=== PATIENT | female | born 1985 | race African-American/Black ===

== ENCOUNTER 2019-03-26 15:36 | Emergency (ER) | payer OTHER ==
[2019-03-26 15:51] VITALS: BP 130/85; PULSE 70; TEMP 98.2; BMI 35.6
--- NOTE | 2019-03-26 16:33 | PDOC ---
History of Present Illness - General Chief Complaint: Injury Stated Complaint: RT FOOT INJURY Time Seen by Provider: 03/26/19 15:51 - History of Present Illness Initial Comments: 03/26/19 16:31 33-year-old female without comorbidities presents for evaluation of right foot injury. She describes a plantarflexion type injury while walking earlier today. Past History - Past Medical History Allergies/Adverse Reactions: Allergies Allergy/AdvReac Type Severity Reaction Status Date / Time No Known Allergies Allergy Verified 03/26/19 15:51 Home Medications: Ambulatory Orders NK [No Known Home Medication] 09/30/15 Asthma: No Cancer: No Cardiac Disorders: No COPD: No Diabetes: No HTN: No Seizures: No Thyroid Disease: No - Reproductive History Cervical CA: No Dysfunctional Uterine Bleeding: No Ectopic : No Endometrial CA: No Polycystic Ovaries: No Spontaneous : 1 - Psycho Social/Smoking Cessation Hx Smoking Status: Yes Smoking History: Never smoked Have you smoked in the past 12 months: Yes Number of Cigarettes Smoked Daily: 0 If you are a former smoker, when did you quit?: quit after knowledge Hx Alcohol Use: Yes (OCCASIONALLY) Drug/Substance Use Hx: No Substance Use Type: None Hx Substance Use Treatment: No Review of Systems - Review of Systems Musculoskeletal: Yes: Joint Pain *Physical Exam - Vital Signs Last Vital Signs Temp Pulse Resp BP Pulse Ox 98.2 F 70 18 130/85 100 03/26/19 15:47 03/26/19 15:47 03/26/19 15:47 03/26/19 15:47 03/26/19 15:47 - Physical Exam 03/26/19 16:31 Right foot skin color and temperature normal. Mildly decreased right ankle range of motion. No tenderness about the knee proximal fibula or along its distal course no tenderness about the medial lateral malleolus ATFL navicular or base of the fifth metatarsal. Mild tenderness about the Lisfranc joint. No gross sensorimotor deficits instability neurovascular intact ED Treatment Course - RADIOLOGY Radiology Studies Ordered: Category Date Time Status ANKLE & FOOT-RIGHT* [RAD] Stat Radiology 03/26/19 16:04 Taken Medical Decision Making - Medical Decision Making 03/26/19 16:32 X-rays of the right foot showed no evidence of fracture trauma or destructive process weight-bear as tolerated with Meyer wrap and crutches follow-up with orthopedic surgery Discharge - Discharge Information Problems reviewed: Yes Clinical Impression/Diagnosis: Right foot sprain Condition: Stable Disposition: HOME - Admission No - Follow up/Referral Referrals: Dennis Hill DO [Staff Physician] - - Patient Discharge Instructions Additional Instructions: Weight-bear as tolerated with Meyer wrap and crutches and follow-up with orthopedic surgery in 2 to 3 days for further evaluation and treatment options. Return to the emergency room for worsening symptoms. Tylenol and Motrin as directed for pain. Elevation and ice as we discussed. - Post Discharge Activity Work/Back to School Note: Back to Work
== END 2019-03-26 16:51 | disposition home or self-care (01) ==
LOC: JERFT 15:36
PROC: 2W3RX1Z Immobilization of Left Lower Leg using Splint (ICD-10-PCS; principal; 2019-03-26)
DX: S93.692A Other sprain of left foot, initial encounter (principal); X50.9XXA Other and unspecified overexertion or strenuous movements or postures, initial encounter; Y93.01 Activity, walking, marching and hiking; Y92.89 Other specified places as the place of occurrence of the external cause; Y99.8 Other external cause status
CPT/HCPCS: 73610-TC-RT-FY; 73630-TC-RT-FY; 99282-25

== ENCOUNTER 2020-10-07 12:56 | Emergency (ER) | payer OTHER ==
[2020-10-07 13:34] VITALS: BP 134/89; PULSE 88; TEMP 99.8; BMI 69.0
[2020-10-07] MEDS ORDERED: DEXAMETHASONE LIQUID 0.5 MG/5 ML PO ONE (13:58)
[2020-10-07] MEDS ORDERED: KETOROLAC TROMETHAMINE 15 MG/ML VIAL IVPUSH ONE (13:59)
[2020-10-07] MEDS ORDERED: DEXAMETHASONE SOD PHOSPHATE 10 MG/1 ML VIAL ONE (14:13)
[2020-10-07] MEDS ORDERED: KETOROLAC TROMETHAMINE 15 MG/ML VIAL ONE (14:13)
[2020-10-07 14:45] LABS: BASO % 0.3 % (0-2.0); EOS % 0.6 % (0-4.5); HEMATOCRIT 41.4 % (32.4-45.2); HEMOGLOBIN 13.6 GM/dL (10.7-15.3); MCH 28.6 pg (25.7-33.7); MCHC 32.8 g/dl (32.0-36.0); MEAN CELL VOLUME 87.1 fl (80-96); MEAN PLT VOLUME 9.3 fl (7.5-11.1); MONO % 9.2 % (3.8-10.2); NEUT % 75.9 % (42.8-82.8); PLATELET COUNT 220 10^3/uL (134-434); RBC 4.75 M/mm3 (3.60-5.2); RDW 14.2 % (11.6-15.6); WHITE BLOOD COUNT 13.4 K/mm3 (4.0-10.0)
[2020-10-07 15:10] LABS: CALCIUM 8.3 mg/dL (8.5-10.1)
[2020-10-07 15:11] LABS: ALBUMIN 3.3 g/dl (3.4-5.0)
[2020-10-07 15:14] LABS: CREATININE 0.7 mg/dL (0.55-1.3)
[2020-10-07 15:16] LABS: BILIRUBIN,TOTAL 0.3 mg/dL (0.2-1)
== END 2020-10-07 17:27 | disposition home or self-care (01) ==
LOC: JERFT 12:56 → JER 12:56 → JERFT 17:27
PROC: 3E0233Z Introduction of Anti-inflammatory into Muscle, Percutaneous Approach (ICD-10-PCS; principal; 2020-10-07)
DX: R07.0 Pain in throat (principal); R59.9 Enlarged lymph nodes, unspecified; J03.90 Acute tonsillitis, unspecified
CPT/HCPCS: 36415; 70491-TC; 80053; 84703; 85025; 87880; 99284-25; Q9967

== ENCOUNTER 2020-11-27 17:02 | Emergency (ER) | payer OTHER ==
[2020-11-27 17:34] VITALS: BP 136/86; PULSE 90; TEMP 98.1; BMI 34.3
[2020-11-27] MEDS ORDERED: AMOX TR/POT CLAV 875MG/125MG TABLETS (FP) PO ONE (19:16)
[2020-11-27] MEDS ORDERED: DEXAMETHASONE LIQUID 0.5 MG/5 ML PO ONE (19:16)
[2020-11-27] MEDS ORDERED: DEXAMETHASONE SOD PHOSPHATE 10 MG/1 ML VIAL ONE (19:18)
[2020-11-27] MEDS ORDERED: AMOX TR/POT CLAV 875MG/125MG TABLETS (FP) ONE (19:19)
== END 2020-11-27 21:49 | disposition home or self-care (01) ==
LOC: JER 17:02
DX: J02.0 Streptococcal pharyngitis (principal); Z11.52 Encounter for screening for COVID-19
CPT/HCPCS: 87880; 99283-25; C9803; U0003; U0005

== ENCOUNTER 2021-11-11 15:57 | Emergency (ER) | payer OTHER ==
[2021-11-11 16:09] VITALS: BP 119/83; PULSE 88; RESP 20; TEMP 98.2; BMI 36.0
[2021-11-11] MEDS ORDERED: ACETAMINOPHEN 1000 MG/100 ML BAG IVPB ONE (18:13)
[2021-11-11] MEDS ORDERED: ACETAMINOPHEN INJECTION 100 ML IVPB ONE (18:21)
[2021-11-11 18:59] LABS: BASO % 1.7 % (0-2.0); EOS % 2.3 % (0-4.5); HEMATOCRIT 43.5 % (32.4-45.2); HEMOGLOBIN 13.9 GM/dL (10.7-15.3); LYMPH % 41.3 % (8-40); MCH 27.2 pg (25.7-33.7); MEAN PLT VOLUME 9.5 fl (7.5-11.1); MONO % 7.3 % (3.8-10.2); NEUT % 47.4 % (42.8-82.8); PLATELET COUNT 255 10^3/uL (134-434); RBC 5.12 M/mm3 (3.60-5.2); RDW 14.2 % (11.6-15.6)
[2021-11-11 19:36] LABS: CALCIUM 9.5 mg/dL (8.5-10.1)
[2021-11-11 19:37] LABS: ALBUMIN 3.6 g/dl (3.4-5.0); BLOOD UREA NITROGEN 17.2 mg/dL (7-18)
[2021-11-11 19:40] LABS: CREATININE 0.6 mg/dL (0.55-1.3)
[2021-11-11 19:42] LABS: BILIRUBIN,TOTAL 0.4 mg/dL (0.2-1); TOT PROT 7.4 g/dl (6.4-8.2)
== END 2021-11-11 20:38 | disposition home or self-care (01) ==
LOC: JER 15:57
PROC: 3E033NZ Introduction of Analgesics, Hypnotics, Sedatives into Peripheral Vein, Percutaneous Approach (ICD-10-PCS; principal; 2021-11-11)
DX: R60.9 Edema, unspecified (principal)
CPT/HCPCS: 36415; 80053; 84484; 85025; 93005; 93010; 93970-TC; 99284-25

== ENCOUNTER 2023-12-17 16:21 | Inpatient (IN) | payer OTHER ==
[2023-12-17] MEDS ORDERED: ONDANSETRON 4 MG/2 ML VIAL ONE (16:50)
[2023-12-17] MEDS ORDERED: FAMOTIDINE 20 MG/50 ML IVPB 20 MG/50 ML MG IVPB ONE (16:50)
[2023-12-17] MEDS: FAMOTIDINE 20 MG/50 ML IVPB 20 MG/50 ML MG IVPB ONE (17:16)
[2023-12-17] MEDS: SODIUM CHLORIDE 1,000 ML IV STA (17:16)
[2023-12-17] MEDS: ONDANSETRON 4 MG/2 ML VIAL IVPUSH ONE (17:16)
[2023-12-17 17:26] LABS: BASO % 0.4 % (0-2.0); EOS % 1.2 % (0-4.5); HEMATOCRIT 40.1 % (32.4-45.2); HEMOGLOBIN 12.8 GM/dL (10.7-15.3); LYMPH % 6.7 % (8-40); MCHC 31.9 g/dl (32.0-36.0); MEAN CELL VOLUME 78.5 fl (80-96); MEAN PLT VOLUME 9.4 fl (7.5-11.1); MONO % 7.2 % (3.8-10.2); NEUT % 84.5 % (42.8-82.8); PLATELET COUNT 325 10^3/uL (134-434); RDW 14.6 % (11.6-15.6); WHITE BLOOD COUNT 18.9 K/mm3 (4.0-10.0)
[2023-12-17 17:37] LABS: POTASSIUM 3.2 mmol/L (3.5-5.1)
[2023-12-17 17:39] LABS: CALCIUM 9.6 mg/dL (8.5-10.1)
[2023-12-17 17:41] LABS: ALBUMIN 3.2 g/dl (3.4-5.0); BLOOD UREA NITROGEN 4.3 mg/dL (7-18)
[2023-12-17 17:42] LABS: CREATININE 0.7 mg/dL (0.55-1.3)
[2023-12-17] MEDS ORDERED: POTASSIUM CHLORIDE ORAL LIQUID 20 MEQ/15 ML ONE ×2 (17:43→18:47)
[2023-12-17] MEDS ORDERED: morphine SULFATE 4 MG/ML VIAL ONE ×2 (17:43→21:10)
[2023-12-17 17:44] LABS: BILIRUBIN,TOTAL 0.3 mg/dL (0.2-1); TOT PROT 7.8 g/dl (6.4-8.2)
[2023-12-17 18:30] LABS: LACTIC ACID 2.3 mmol/L (0.4-2.0)
[2023-12-17 18:34] LABS: HIV INTERPRETATION NEGATIVE (NEGATIVE)
[2023-12-17] MEDS: morphine CARPU-JECT 4 MG/1 ML DISP.SYRIN IVPUSH ONE (18:45)
[2023-12-17] MEDS ORDERED: ACETAMINOPHEN INJECTION 100 ML ONE (18:47)
[2023-12-17] MEDS: POTASSIUM CHLORIDE ORAL LIQUID 20 MEQ/15 ML PO ONE (18:47)
[2023-12-17] MEDS: ACETAMINOPHEN 1000 MG/100 ML BAG IVPB ONE (18:54)
[2023-12-17] MEDS: SODIUM CHLORIDE 0.9% 500 ML INFUS.BAG IV ONE (18:55)
[2023-12-17] MEDS ORDERED: PIPERACILLIN/TAZOB 4.5 GM 4.5 GM/100 ML BAG IVPB ONE (21:10)
[2023-12-17] MEDS: morphine SULFATE 4 MG/ML VIAL IVPUSH ONE (21:29)
[2023-12-17] MEDS: PIPERACILLIN/TAZOB 4.5 GM 4.5 GM in DEXTROSE 5%-WATER 100 ML IVPB ONE (21:29)
[2023-12-17] MEDS: SODIUM CHLORIDE 1,000 ML IV SCH (22:01)
[2023-12-18] MEDS: KETOROLAC TROMETHAMINE 30 MG/1 ML VIAL IVPB ONE (00:20)
[2023-12-18 01:43] VITALS: BMI 35.7
[2023-12-18 02:15] LABS: EPI CELLS 10 /uL (0-25.1); HYALINE CASTS 0 /uL (0-3.1); URINE APPEARANCE CLEAR; URINE BACTERIA 22 /uL (0-1359); URINE BILIRUBIN NEGATIVE (NEGATIVE); URINE COLOR YELLOW; URINE GLUCOSE (UA) NEGATIVE (NEGATIVE); URINE KETONE NEGATIVE (NEGATIVE); URINE LEUK ESTERASE NEGATIVE (NEGATIVE); URINE NITRITE NEGATIVE (NEGATIVE); URINE PROTEIN NEGATIVE (NEGATIVE); URINE RBC 80 /uL (0-23.9); URINE WBC 27 /uL (0-25.8)
[2023-12-18] MEDS: PIPERACILLIN/TAZOB 4.5 GM 4.5 GM in DEXTROSE 5%-WATER 100 ML IVPB SCH (03:04)
[2023-12-18] MEDS: morphine SULFATE 4 MG/ML VIAL IVPUSH PRN (03:05)
[2023-12-18] MEDS: ACETAMINOPHEN 1000 MG/100 ML BAG IVPB PRN (04:31)
[2023-12-18 10:37] LABS: BASO % 0.4 % (0-2.0); EOS % 2.3 % (0-4.5); HEMATOCRIT 32.2 % (32.4-45.2); HEMOGLOBIN 10.2 GM/dL (10.7-15.3); LYMPH % 8.3 % (8-40); MCHC 31.8 g/dl (32.0-36.0); MEAN CELL VOLUME 78.7 fl (80-96); MEAN PLT VOLUME 9.9 fl (7.5-11.1); MONO % 11.8 % (3.8-10.2); NEUT % 77.2 % (42.8-82.8); PLATELET COUNT 280 10^3/uL (134-434); RBC 4.09 M/mm3 (3.60-5.2); RDW 14.3 % (11.6-15.6); WHITE BLOOD COUNT 17.9 K/mm3 (4.0-10.0)
[2023-12-18] MEDS: KETOROLAC TROMETHAMINE 30 MG/1 ML VIAL IVPUSH PRN (11:09)
[2023-12-18 14:16] LABS: ALBUMIN 2.4 g/dl (3.4-5.0); BILIRUBIN,TOTAL 0.3 mg/dL (0.2-1); BLOOD UREA NITROGEN 6.3 mg/dL (7-18); CREATININE 0.6 mg/dL (0.55-1.3); POTASSIUM 3.5 mmol/L (3.5-5.1); TOT PROT 5.7 g/dl (6.4-8.2)
[2023-12-18] MEDS: LORATADINE 10 MG TABLET PO ONE (22:16)
[2023-12-19 03:21] LABS: URINE BARBITURATES NEGATIVE (NEGATIVE)
[2023-12-19 03:22] LABS: METHADONE, UR NEGATIVE (NEGATIVE); PHENCYCLIDINE,URINE NEGATIVE (NEGATIVE); URINE AMPHETAMINES NEGATIVE (NEGATIVE); URINE BENZODIAZEPINES NEGATIVE (NEGATIVE)
[2023-12-19] MEDS: PIPERACILLIN/TAZOB 4.5 GM 4.5 GM in DEXTROSE 5%-WATER 100 ML IVPB ONE ×2 (03:35→13:45)
[2023-12-19 03:44] LABS: COCAINE, UR POSITIVE (NEGATIVE); OPIATES, URI POSITIVE (NEGATIVE)
[2023-12-19 09:44] LABS: HEMATOCRIT 32.8 % (32.4-45.2); HEMOGLOBIN 10.5 GM/dL (10.7-15.3); MCH 25.4 pg (25.7-33.7); MCHC 31.9 g/dl (32.0-36.0); MEAN CELL VOLUME 79.6 fl (80-96); MEAN PLT VOLUME 9.7 fl (7.5-11.1); PLATELET COUNT 292 10^3/uL (134-434); RBC 4.12 M/mm3 (3.60-5.2); RDW 14.6 % (11.6-15.6); WHITE BLOOD COUNT 9.4 K/mm3 (4.0-10.0)
[2023-12-19 10:04] LABS: POTASSIUM 3.7 mmol/L (3.5-5.1)
[2023-12-19 10:07] LABS: ALBUMIN 2.3 g/dl (3.4-5.0); BLOOD UREA NITROGEN 7.3 mg/dL (7-18)
[2023-12-19 10:09] LABS: CALCIUM 8.4 mg/dL (8.5-10.1)
[2023-12-19 10:11] LABS: CREATININE 0.5 mg/dL (0.55-1.3)
[2023-12-19 10:15] LABS: BILIRUBIN,TOTAL 0.2 mg/dL (0.2-1)
[2023-12-19 10:20] LABS: TOT PROT 5.6 g/dl (6.4-8.2)
[2023-12-19] MEDS: PIPERACILLIN/TAZOB 4.5 GM 4.5 GM in DEXTROSE 5%-WATER 100 ML IVPB SCH ×2 (18:38→21:13)
[2023-12-19] MEDS: LORATADINE 10 MG TABLET PO ONE (22:18)
[2023-12-20 08:57] LABS: BASO % 0.9 % (0-2.0); EOS % 4.4 % (0-4.5); HEMATOCRIT 32.1 % (32.4-45.2); LYMPH % 32.1 % (8-40); MCH 25.1 pg (25.7-33.7); MEAN CELL VOLUME 80.8 fl (80-96); MEAN PLT VOLUME 9.4 fl (7.5-11.1); MONO % 7.7 % (3.8-10.2); NEUT % 54.9 % (42.8-82.8); PLATELET COUNT 313 10^3/uL (134-434); RBC 3.97 M/mm3 (3.60-5.2); RDW 14.5 % (11.6-15.6); WHITE BLOOD COUNT 7.8 K/mm3 (4.0-10.0)
[2023-12-20 09:21] LABS: POTASSIUM 4.1 mmol/L (3.5-5.1)
[2023-12-20 09:25] LABS: ALBUMIN 2.1 g/dl (3.4-5.0); CALCIUM 8.1 mg/dL (8.5-10.1)
[2023-12-20 09:26] LABS: BLOOD UREA NITROGEN 6.4 mg/dL (7-18)
[2023-12-20 09:29] LABS: CREATININE 0.5 mg/dL (0.55-1.3)
[2023-12-20 09:30] LABS: BILIRUBIN,TOTAL 0.1 mg/dL (0.2-1); TOT PROT 5.4 g/dl (6.4-8.2)
[2023-12-20] MEDS: LORATADINE 10 MG TABLET PO SCH (10:11)
[2023-12-20] MEDS: POLYETHYLENE GLYCOL (HEALTHYLAX) 3350 17 GM PACKET PO SCH (17:05)
[2023-12-20] MEDS: SENNOSIDES 8.6MG TABLET (FP) PO PRN (21:27)
[2023-12-20 22:28] VITALS: RESP 18
[2023-12-21] MEDS: ACETAMINOPHEN 1000 MG/100 ML BAG IVPB ONE (00:24)
[2023-12-21 15:19] VITALS: BP 152/80; PULSE 56; TEMP 98.8
== END 2023-12-21 22:54 | disposition home or self-care (01) | DRG 248 ==
LOC: JER 16:21 → JERBED 21:13 → J6W 22:27
PROVIDERS: ADMIT Internal Medicine; ATTEND Internal Medicine
PROC: 0W9G30Z Drainage of Peritoneal Cavity with Drainage Device, Percutaneous Approach (ICD-10-PCS; principal; 2023-12-18)
DX: K35.33 Acute appendicitis with perforation, localized peritonitis, and gangrene, with abscess (principal); E87.20 Acidosis, unspecified; I10 Essential (primary) hypertension; E66.9 Obesity, unspecified; Z68.35 Body mass index [BMI] 35.0-35.9, adult
CPT/HCPCS: 36415; 49406; 74018-TC-FY; 74177-TC; 80053; 80307; 81003; 83605; 83690; 84703; 85025; 85027; 86803; 87040; 87070; 87075; 87076; 87086; 87186; 87205; 87389; 93005; 93010; 99285-25; J0131; Q9967